=== PATIENT | male | born 1955 | race Caucasian/White ===

== ENCOUNTER 2017-06-17 19:00 | Observation (INO) | payer MEDICARE ==
--- NOTE | 2017-06-17 20:15 | RAD ---
INDICATION: Defibrillator fired. Arrhythmia. COMPARISON: July 15, 2013 TECHNIQUE: An AP portable view obtained at 1955 hours is submitted. FINDINGS: Bones/Soft Tissues: There are no acute bony findings. There is left-sided cardiac pacemaker/defibrillator. There are sternotomy Cardiomediastinal: The cardiomediastinal silhouette is normal. Lungs: There is mild linear change left lung base most consistent with atelectasis.. Pleura: There are no pleural effusions. Other: None IMPRESSION: POSTOPERATIVE CHANGES. MILD LEFT BASILAR ATELECTASIS, OTHERWISE NEGATIVE
[2017-06-17 20:28] LABS: Hematocrit 41 % (42-52); Hemoglobin 13.9 g/dl (14.0-18.0); Mean Corpuscular HGB Conc 34 g/dl (31-36); Mean Corpuscular Hemoglobin 30 pg (27-31); Mean Corpuscular Volume 89 fL (80-94); Mean Platelet Volume 8 um3 (7.4-10.4); Red Blood Count 4.63 10^6/ul (4.0-5.4); Red Cell Distribution Width 15 % (10.5-15); White Blood Count 8.9 10^3/ul (3.5-10.8)
[2017-06-17] MEDS ORDERED: NS 0.9% 1000 ML* 250 ML IV ONE (20:43)
[2017-06-17 20:44] LABS: Albumin 3.6 g/dL (3.2-5.2); BUN/Creatinine Ratio 19.8 (8-20); Calcium 9.2 mg/dL (8.6-10.3); EGFR African American 115.9 (>60); EGFR Non-African American 90.1 (>60); Globulin 2.8 g/dL (2-4); Magnesium 2.2 mg/dL (1.9-2.7); Potassium 3.4 mmol/L (3.5-5.0); Total Bilirubin 1.3 mg/dL (0.2-1.0); Total Protein 6.4 g/dL (6.4-8.9)
[2017-06-17 20:45] LABS: Troponin I 0.03 ng/mL (<0.04)
[2017-06-17] MEDS ORDERED: Potassium Chlor TAB* 20 MEQ TAB.ER PO ONE (20:53)
[2017-06-17 21:10] LABS: TSH (Thyroid Stimulating Horm) 1.76 mcIU/mL (0.34-5.60)
--- NOTE | 2017-06-17 21:36 | ED ---
Yogesh Arambula Benjamin, scribed for Hortencia Lyons MD on 06/17/17 at 1949 . Palpitations / Dysrhythmia - HPI Summary HPI Summary: 62yo male with hx of NV x3, with cardiac stents and defibrillator in placed. Pt s defibrillator went off today at 6pm. Pt has prior episodes of defibrillator malfunction. Pt reports having lightheadedness at the time of episode, which pt had similar feeling in his previous episodes. Pt is a former smoker. Also states that his BP is lower than his normal baseline. - History of Current Complaint Chief Complaint: EDDysrhythmPalp Hx Obtained From: Patient Onset/Duration: Sudden Onset - at 6pm today Character: Irregular - defibrillator malfunctioning Aggravating: Nothing Alleviating: Nothing Associated Signs & Symptoms: Lightheadedness Related History: Similar Episode/Dx as - defibrillator malfunctioning - Allergy/Home Medications Allergies/Adverse Reactions: Allergies Allergy/AdvReac Type Severity Reaction Status Date / Time No Known Allergies Allergy Verified 07/02/13 05:03 PMH/Surg Hx/FS Hx/Imm Hx Endocrine/Hematology History: Denies: Hx Anticoagulant Therapy Cardiovascular History: Reports: Hx Auto Implanted Cardiovert Defib, Hx Myocardial Infarction, Hx Pacemaker/ICD Infectious Disease History: Yes Infectious Disease History: Denies: Traveled Outside the [place] in Last 30 Days - Family History Known Family History: Positive: Cardiac Disease - Social History Occupation: Retired Lives: With Family Alcohol Use: None Substance Use Type: Reports: None Smoking Status (MU): Former Smoker Review of Systems Constitutional: Negative Eyes: Negative ENT: Negative Positive: Palpitations - defibrillator malfunctioning Respiratory: Negative Gastrointestinal: Negative Genitourinary: Negative Musculoskeletal: Negative Skin: Negative Neurological: Other - lightheadedness Psychological: Normal All Other Systems Reviewed And Are Negative: Yes Physical Exam Triage Information Reviewed: Yes Vital Signs On Initial Exam: Initial Vitals Temp Pulse Resp BP Pulse Ox 97.9 F 64 14 84/53 93 06/17/17 19:03 06/17/17 19:03 06/17/17 19:03 06/17/17 19:03 06/17/17 19:03 Vital Signs Reviewed: Yes Appearance: Positive: Well-Appearing, No Pain Distress, Well-Nourished Skin: Positive: Warm, Skin Color Reflects Adequate Perfusion, Dry Head/Face: Positive: Normal Head/Face Inspection Eyes: Positive: EOMI, JENNIFER, Conjunctiva Clear ENT: Positive: Normal ENT inspection, Hearing grossly normal Neck: Positive: Supple, Nontender Respiratory/Lung Sounds: Positive: Clear to Auscultation, Breath Sounds Present Cardiovascular: Positive: RRR, Pulses are Symmetrical in both Upper and Lower Extremities. Negative: Murmur Abdomen Description: Positive: Nontender, Soft Bowel Sounds: Positive: Present Musculoskeletal: Positive: Strength/ROM Intact Neurological: Positive: Sensory/Motor Intact, Alert, Oriented to Person Place, Time Psychiatric: Positive: Affect/Mood Appropriate - [place] Coma Scale Coma Scale Total: 15 Diagnostics - Vital Signs Vital Signs Temp Pulse Resp BP Pulse Ox 06/17/17 19:30 59 11 98/64 91 06/17/17 19:13 61 15 92 06/17/17 19:03 97.9 F 64 14 84/53 93 - Laboratory Lab Results: Lab Results 06/17/17 06/17/17 06/17/17 Range/Units 20:18 20:18 20:18 WBC 8.9 (3.5-10.8) 10^3/ul RBC 4.63 (4.0-5.4) 10^6/ul Hgb 13.9 L (14.0-18.0) g/dl Hct 41 L (42-52) % MCV 89 (80-94) fL MCH 30 (27-31) pg MCHC 34 (31-36) g/dl RDW 15 (10.5-15) % Plt Count 254 (150-450) 10^3/ul MPV 8 (7.4-10.4) um3 Neut % (Auto) 73.1 (38-83) % Lymph % (Auto) 15.9 L (25-47) % [place] % (Auto) 9.0 (1-9) % Eos % (Auto) 1.3 (0-6) % Baso % (Auto) 0.7 (0-2) % Absolute Neuts (auto) 6.5 (1.5-7.7) 10^3/ul Absolute Lymphs (auto) 1.4 (1.0-4.8) 10^3/ul Absolute Monos (auto) 0.8 (0-0.8) 10^3/ul Absolute Eos (auto) 0.1 (0-0.6) 10^3/ul Absolute Basos (auto) 0.1 (0-0.2) 10^3/ul Absolute Nucleated RBC 0 10^3/ul Nucleated RBC % 0 Sodium 139 (133-145) mmol/L Potassium 3.4 L (3.5-5.0) mmol/L Chloride 109 (101-111) mmol/L Carbon Dioxide 24 (22-32) mmol/L Anion Gap 6 (2-11) mmol/L BUN 17 (6-24) mg/dL Creatinine 0.86 (0.67-1.17) mg/dL Est GFR ( Amer) 115.9 (>60) Est GFR (Non-Af Amer) 90.1 (>60) BUN/Creatinine Ratio 19.8 (8-20) Glucose 127 H (70-100) mg/dL Lactic Acid 1.1 (0.5-2.0) mmol/L Calcium 9.2 (8.6-10.3) mg/dL Magnesium 2.2 (1.9-2.7) mg/dL Total Bilirubin 1.30 H (0.2-1.0) mg/dL AST 17 (13-39) U/L ALT 18 (7-52) U/L Alkaline Phosphatase 72 (34-104) U/L Troponin I 0.03 (<0.04) ng/mL Total Protein 6.4 (6.4-8.9) g/dL Albumin 3.6 (3.2-5.2) g/dL Globulin 2.8 (2-4) g/dL Albumin/Globulin Ratio 1.3 (1-3) TSH 1.76 (0.34-5.60) mcIU/mL Result Diagrams: 06/17/17 20:18 06/17/17 20:18 Lab Statement: Any lab studies that have been ordered have been reviewed, and results considered in the medical decision making process. - EKG 2010. Cardiac Rate: NL - 60bpm EKG Rhythm: Sinus Rhythm EKG Interpretation: lateral and inferior Qs. EKG Comparison: No Significant Change - from EKG on July,. Course/Dx - Course Course Of Treatment: Reviewed pts medication and allergy lists. Blood pressure noted. Discussed with Dr. Maria (Hospitalist) at 20:22. Discussed with Dr. Hoyt's fellow (congressional district aide) at 21:04. pt given one dose of 250 cc of ns for slightly low bp pt which will be repeated if needed now bp in the 90's and pt is well appearing pt to be admitted by Dr. Maria - Diagnoses Provider Diagnoses: Ventricular tachycardia Discharge - Discharge Plan Condition: Stable Disposition: ADMITTED TO [facility] The documentation as recorded by the Yogesh billings Benjamin accurately reflects the service I personally performed and the decisions made by me, Hortencia Lyons MD.
--- NOTE | 2017-06-18 00:11 | HP ---
H&P (Free Text) History and Physical: PCP: Jhon Dewey MD Cardiology: Dr Lu at [facility] Date/Time: 06/18/2017 0010 CC: AICD fired HPI: Mr Malcolm is a 62YO male HX VT s/p AICD who has been doing without and AICD discharge for ~3 years. Tonight around 1800 he was sitting at home talking on the phone when he experienced the cranial pressure he typically gets during VT and within a few seconds, his AICD fired once prompting this evaluation. He denies chest pain, SOB, palpitations, and sweating. Ironically, he had seen his rate inserter yesterday and informed him of self-D/C'ing his 25mg losartan ~9 months previously. His rate inserter encouraged him to restart as it improved cardiac remodeling and performance over time. He took the first restart dose this AM and is convinced it is what caused his VT. While it may appear related, it was explained that in his situation I can not explain how it could. He was not reassured and refused to reconsider taking it further. As such, I offered to switch him to a low dose lisinopril which would be an adequate substitution and he agreed. He is currently symptom free. PMedHx VT s/p AICD HLD cardiac laceration complicating his 2nd ablation Ambulatory Orders Nursing to reconcile. Atorvastatin* [Lipitor*] 40 mg PO DAILY 07/21/12 Clopidogrel TAB* [Plavix TAB*] 75 mg PO DAILY 07/21/12 Metoprolol Tartrate TAB* [Lopressor TAB*] 50 mg PO BID 07/21/12 Nitroglycerin TAB 0.4 MG* [Nitrostat*] 0.4 mg SL Q5M PRN 07/21/12 Aspirin EC Low Dose* [Ecotrin EC Low Dose 81 MG*] 81 mg PO DAILY 07/02/13 Dofetilide CAP* [Tikosyn CAP*] 250 mcg PO BID 07/06/13 Furosemide TAB* [Lasix TAB*] 20 mg PO DAILY 07/06/13 Spironolactone TAB* [Aldactone TAB*] 25 mg PO DAILY 07/06/13 Allergies No Known Allergies Allergy (Verified 07/02/13 05:03) PSurgHx cardiac ablation x2 AICD placement varicose vein stripping tonsillectomy SocHx: former smoker quit 4 years ago, rare alcohol, no recreational drugs; , lives with his ; full code status FamHx: Mother passed in her 80s 2nd ischemic bowel with DM2. Father passed in his 90's 2nd Alzheimer's. Sister passed of breast CA. ROS: He has lost ~100# over the past year or so intentionally without surgery; otherwise reviewed and all were negative vitals: Vital Signs Temp 36.4 C 06/18/17 00:59 Pulse 89 06/18/17 00:59 Resp 16 06/18/17 00:59 BP 102/67 06/18/17 00:59 Pulse Ox 97 06/18/17 00:59 Intake & Output 06/17/17 06/17/17 06/18/17 11:59 23:59 11:59 Intake Total 250 Balance 250 Weight 101.151 kg Intake: IV Fluids 250 Constitutional: NAD, normally developed, obese white male HEENM: atraumatic; sclera/conjunctiva: non-icteric/clear; hearing: clinically intact; oropharynx: clear, mucosa moist Neck: soft tissue: non-tender; thyroid: normal Pulmonary: clear to auscultation bilaterally, good aeration, no accessory muscle use CV: RR/RR, normal S1S2, no carotid bruit, no jugular venous distention, 2+ B DP/ PT, no edema Abdominal: soft, non-distended, non-tender, no rebound/guarding/rigidity, normoactive bowel sounds, no hepatosplenomegaly or masses, no costovertebral angle tenderness Musculoskeletal: general: grossly intact, no palpable tenderness Integumental: normal appearance and texture of exposed skin Psychiatric orientation: AA&O to PPS affect: comfortable mood: pleasant eye contact: good content: reliable responses: timely insight: good Testing: Lab Results 06/17/17 06/17/17 06/17/17 Range/Units 20:18 20:18 20:18 WBC 8.9 (3.5-10.8) 10^3/ul RBC 4.63 (4.0-5.4) 10^6/ul Hgb 13.9 L (14.0-18.0) g/dl Hct 41 L (42-52) % MCV 89 (80-94) fL MCH 30 (27-31) pg MCHC 34 (31-36) g/dl RDW 15 (10.5-15) % Plt Count 254 (150-450) 10^3/ul MPV 8 (7.4-10.4) um3 Neut % (Auto) 73.1 (38-83) % Lymph % (Auto) 15.9 L (25-47) % [place] % (Auto) 9.0 (1-9) % Eos % (Auto) 1.3 (0-6) % Baso % (Auto) 0.7 (0-2) % Absolute Neuts (auto) 6.5 (1.5-7.7) 10^3/ul Absolute Lymphs (auto) 1.4 (1.0-4.8) 10^3/ul Absolute Monos (auto) 0.8 (0-0.8) 10^3/ul Absolute Eos (auto) 0.1 (0-0.6) 10^3/ul Absolute Basos (auto) 0.1 (0-0.2) 10^3/ul Absolute Nucleated RBC 0 10^3/ul Nucleated RBC % 0 Sodium 139 (133-145) mmol/L Potassium 3.4 L (3.5-5.0) mmol/L Chloride 109 (101-111) mmol/L Carbon Dioxide 24 (22-32) mmol/L Anion Gap 6 (2-11) mmol/L BUN 17 (6-24) mg/dL Creatinine 0.86 (0.67-1.17) mg/dL Est GFR ( Amer) 115.9 (>60) Est GFR (Non-Af Amer) 90.1 (>60) BUN/Creatinine Ratio 19.8 (8-20) Glucose 127 H (70-100) mg/dL Lactic Acid 1.1 (0.5-2.0) mmol/L Calcium 9.2 (8.6-10.3) mg/dL Magnesium 2.2 (1.9-2.7) mg/dL Total Bilirubin 1.30 H (0.2-1.0) mg/dL AST 17 (13-39) U/L ALT 18 (7-52) U/L Alkaline Phosphatase 72 (34-104) U/L Troponin I 0.03 (<0.04) ng/mL Total Protein 6.4 (6.4-8.9) g/dL Albumin 3.6 (3.2-5.2) g/dL Globulin 2.8 (2-4) g/dL Albumin/Globulin Ratio 1.3 (1-3) TSH 1.76 (0.34-5.60) mcIU/mL 06/18/17 Range/Units 01:18 WBC (3.5-10.8) 10^3/ul RBC (4.0-5.4) 10^6/ul Hgb (14.0-18.0) g/dl Hct (42-52) % MCV (80-94) fL MCH (27-31) pg MCHC (31-36) g/dl RDW (10.5-15) % Plt Count (150-450) 10^3/ul MPV (7.4-10.4) um3 Neut % (Auto) (38-83) % Lymph % (Auto) (25-47) % [place] % (Auto) (1-9) % Eos % (Auto) (0-6) % Baso % (Auto) (0-2) % Absolute Neuts (auto) (1.5-7.7) 10^3/ul Absolute Lymphs (auto) (1.0-4.8) 10^3/ul Absolute Monos (auto) (0-0.8) 10^3/ul Absolute Eos (auto) (0-0.6) 10^3/ul Absolute Basos (auto) (0-0.2) 10^3/ul Absolute Nucleated RBC 10^3/ul Nucleated RBC % Sodium (133-145) mmol/L Potassium (3.5-5.0) mmol/L Chloride (101-111) mmol/L Carbon Dioxide (22-32) mmol/L Anion Gap (2-11) mmol/L BUN (6-24) mg/dL Creatinine (0.67-1.17) mg/dL Est GFR ( Amer) (>60) Est GFR (Non-Af Amer) (>60) BUN/Creatinine Ratio (8-20) Glucose (70-100) mg/dL Lactic Acid (0.5-2.0) mmol/L Calcium (8.6-10.3) mg/dL Magnesium (1.9-2.7) mg/dL Total Bilirubin (0.2-1.0) mg/dL AST (13-39) U/L ALT (7-52) U/L Alkaline Phosphatase (34-104) U/L Troponin I 0.03 (<0.04) ng/mL Total Protein (6.4-8.9) g/dL Albumin (3.2-5.2) g/dL Globulin (2-4) g/dL Albumin/Globulin Ratio (1-3) TSH (0.34-5.60) mcIU/mL ECG, personally reviewed: NSR rate 60, no ischemia CXR, personally reviewed: IMPRESSION: POSTOPERATIVE CHANGES. MILD LEFT BASILAR ATELECTASIS, OTHERWISE NEGATIVE Impression: 62M presenting with an episode of VT terminated by AICD DIAGNOSIS & PLAN Primary VT terminated by AICD : AICD interrogation on chart : raise K+ to >4.0 : Mg++ is 2.2 : telemetry : trend troponin : supplemental oxygen : supportive care : review & continue meds once reconciled Secondary HLD : review meds once reconciled Admission Rational: CDU observation for VT terminated by AICD DVTp: heparin SQ Code Status: full HCP:
[2017-06-18] MEDS ORDERED: Albuterol 2.5 MG/3 ML NEB.SOL* (0.083%) INH PRN (00:16)
[2017-06-18] MEDS ORDERED: Acetaminophen TAB* 325 MG PO PRN (00:16)
[2017-06-18] MEDS ORDERED: Ondansetron INJ* 2 MG/ML VIAL IV PRN (00:16)
[2017-06-18] MEDS ORDERED: CMCS: Melatonin (NF) 3 MG TAB PO PRN (00:16)
[2017-06-18] MEDS ORDERED: NS 0.9% 1000 ML* 1,000 ML IV SCH (00:30)
[2017-06-18] MEDS ORDERED: NS 0.9% 1000 ML* 500 ML IV ONE (00:48)
[2017-06-18] MEDS ORDERED: Omeprazole CAP* 20 MG PO SCH (06:00)
[2017-06-18 06:03] LABS: Hematocrit 39 % (42-52); Hemoglobin 13.1 g/dl (14.0-18.0)
[2017-06-18 06:05] LABS: BUN/Creatinine Ratio 18.5 (8-20); Calcium 8.9 mg/dL (8.6-10.3); EGFR African American 124.2 (>60); EGFR Non-African American 96.6 (>60); Potassium 3.8 mmol/L (3.5-5.0)
[2017-06-18 06:07] LABS: Troponin I 0.03 ng/mL (<0.04)
[2017-06-18] MEDS ORDERED: Lisinopril TAB* 5 MG PO SCH (09:00)
[2017-06-18 10:44] VITALS: BP 86/67
--- NOTE | 2017-06-19 04:16 | DS ---
CC: Jeff Diaz * DISCHARGE SUMMARY: DATE OF ADMISSION: 06/18/17 DATE OF DISCHARGE: 06/18/17 HISTORY: This 62-year-old man presented after his ICD fired. About 6 p.m., he was talking on the phone. He had some type of pressure sensation. He was able to detect the overpacing attempt of the pacemaker, then his ICD fired. He has had 7 or 8 previous firings over the years he has had ICDs. This is actually his second ICD. He promptly electronically transmitted the ICD interrogation over the phone to his psych social worker and this arrived in the emergency room with signs he had had ventricular tachycardia. The patient had not taken losartan for 9 months and restarted it at the urging of his psych social worker the morning that he had the V-tach and feels that it is a causal relationship. The patient was admitted to a telemetry unit. He had no further significant arrhythmias on the firing of the ICD. His potassium is 3.4. He got 40 mEq p.o. in the emergency room and his potassium was 3.8. The next morning, creatinine is 0.86 and 0.81. Two troponins were drawn all of which were within normal limits. I am adding potassium 10 mEq daily to the patient's medications and having him get a potassium level on 06/22/17. FINAL DIAGNOSES: 1. Ischemic cardiomyopathy. 2. Ventricular tachycardia. 3. Hyperlipidemia. DISCHARGE MEDICATIONS: 1. Potassium chloride 10 mEq daily. 2. Clopidogrel 75 mg daily. 3. Atorvastatin 40 mg daily. 4. Nitroglycerin 0.4 mg sublingual q.5 minutes p.r.n. 5. Metoprolol tartrate 50 mg b.i.d. 6. Aspirin 81 mg daily. 7. Spironolactone 25 mg daily. 8. Furosemide 20 mg daily. 9. Dofetilide 250 mcg b.i.d. [id number]/[facility] #: [id number] [facility] SYSTEMEfrain
[2017-06-19] MEDS ORDERED: Heparin VIAL(*) 5000 UNITS/ML VIAL (FIVE THOUSAND) SUBCUT SCH (06:00)
== END 2017-06-18 12:34 | disposition home or self-care (01) ==
LOC: ED 19:00 → MEDTELE 06-18 00:11
PROVIDERS: ADMIT Hospitalist; ATTEND Internal Medicine
DX: I25.5 Ischemic cardiomyopathy (principal); I47.2 Ventricular tachycardia; E78.5 Hyperlipidemia, unspecified; I25.2 Old myocardial infarction; J98.11 Atelectasis; R94.31 Abnormal electrocardiogram [ECG] [EKG]; I44.4 Left anterior fascicular block; Z79.82 Long term (current) use of aspirin; Z79.899 Other long term (current) drug therapy; Z87.891 Personal history of nicotine dependence
CPT/HCPCS: 36415; 71010; 80048; 80053; 83605; 83735; 84443; 84484; 85014; 85018; 85025; 93005; 94760; 96360; 96361; 99284; A9270-GY; G0378

== ENCOUNTER 2018-06-16 17:35 | Emergency (ER) | payer MEDICARE ==
[2018-06-16 18:41] VITALS: BP 93/60
--- NOTE | 2018-06-16 20:00 | UC ---
Hand/Wrist HPI - HPI Summary HPI Summary: left wrist pain developed after a motorocycle cllass several days ago, no prior hx. of gout, no fever or chills, no discharge from the skin - History Of Current Complaint Chief Complaint: UCUpperExtremity Stated Complaint: HAND/WRIST PAIN/SWELLING Time Seen by Provider: 06/16/18 19:15 Hx Obtained From: Patient ?: No Onset/Duration: Sudden Onset, Lasting Days Severity Initially: Moderate Severity Currently: Moderate Pain Intensity: 3 Character Of Pain: Sharp, Throbbing Aggravating Factor(s): Movement Alleviating Factor(s): Rest, Ice Associated Signs And Symptoms: Positive: Swelling, Redness - Allergies/Home Medications Allergies/Adverse Reactions: Allergies Allergy/AdvReac Type Severity Reaction Status Date / Time No Known Allergies Allergy Verified 06/16/18 18:26 Home Medications: Home Medications Carvedilol TAB* [Coreg TAB*] 1 tab BID 06/16/18 [History Confirmed 06/16/18] Magnesium 1 tab DAILY 06/16/18 [History Confirmed 06/16/18] Potassium Chlor TAB* [Klor Con ER TAB 10 MEQ*] 10 meq DAILY 06/16/18 [History Confirmed 06/16/18] PMH/Surg Hx/FS Hx/Imm Hx Previously Healthy: No - hx of vtach requiring two ablations, injury to the heart during second abla Cardiovascular History: Cardiac Disease, Pacemaker/ICD - vtach with ablation, injury to heart with second ablation and chf Other History Of: Negative For: Anticoagulant Therapy - Surgical History Surgical History: Yes Surgery Procedure, Year, and Place: Cardiac ablation x2 - Family History Known Family History: Positive: Cardiac Disease - Social History Alcohol Use: None Substance Use Type: None Smoking Status (MU): Former Smoker - Immunization History Most Recent Tetanus Shot: UTD Review of Systems Constitutional: Negative Skin: Other - redness over the left wrist Eyes: Negative ENT: Negative Respiratory: Negative Cardiovascular: Negative Gastrointestinal: Negative Genitourinary: Negative Motor: Decreased ROM - left wrist with decreased ROM Musculoskeletal: Other: - pain ,swelling left wrist Is Patient Immunocompromised?: No All Other Systems Reviewed And Are Negative: Yes Physical Exam Triage Information Reviewed: Yes Appearance: Well-Appearing, Pain Distress, Obese Vital Signs: Initial Vital Signs Temp 36.7 C 06/16/18 18:29 Pulse 62 06/16/18 18:29 Resp 16 06/16/18 18:29 BP 93/60 06/16/18 18:29 Pulse Ox 99 06/16/18 18:29 Vital Signs Reviewed: Yes Eye Exam: Normal ENT Exam: Normal ENT: Positive: Normal ENT inspection Neck exam: Normal Neck: Positive: Supple Respiratory Exam: Normal Respiratory: Positive: Chest non-tender, Lungs clear Abdominal Exam: Normal Abdomen Description: Positive: Nontender Bowel Sounds: Positive: Present Musculoskeletal: Positive: Other: - pain on flexion , extension of the wrist, with swelling pain with ulnar and radial deviation of the wrist Hand/Wrist Course/Dx - Differential Dx/Diagnosis Provider Diagnoses: acute gout left wrist vs pseudogout Discharge - Sign-Out/Discharge Documenting (check all that apply): Patient Departure All imaging exams completed and their final reports reviewed: Yes - Discharge Plan Condition: Good Disposition: HOME Prescriptions: predniSONE [Prednisone 20 MG TAB] 20 mg PO DAILY 7 Days #14 tablet Patient Education Materials: Gout (ED) Referrals: Maco VAZQUEZ,Aj Murillo [Primary Care Provider] - - Billing Disposition and Condition Condition: GOOD Disposition: Home
--- NOTE | 2018-06-17 07:43 | RAD ---
HISTORY: pain swelling of the left wrist, left wrist COMPARISONS: None VIEWS: 3 , Frontal, lateral, and oblique views FINDINGS: BONE DENSITY: Normal. BONES: There is no displaced fracture. JOINTS: There is osteoarthritis of the first CMC joint and first interphalangeal joint. ALIGNMENT: There is no dislocation. SOFT TISSUES: Unremarkable. OTHER FINDINGS: None. IMPRESSION: OSTEOARTHRITIS. NO ACUTE OSSEOUS INJURY. IF SYMPTOMS PERSIST, RECOMMEND REPEAT IMAGING. R0
[2018-06-17 11:21] LABS: Hematocrit 39 % (42-52); Hemoglobin 13.2 g/dl (14.0-18.0); Mean Corpuscular HGB Conc 34 g/dl (31-36); Mean Corpuscular Hemoglobin 30 pg (27-31); Mean Corpuscular Volume 89 fL (80-94); Mean Platelet Volume 8.4 um3 (7.4-10.4); Platelet Count 240 10^3/ul (150-450); Red Cell Distribution Width 14 % (10.5-15); White Blood Count 7.7 10^3/ul (3.5-10.8)
[2018-06-17 11:32] LABS: EGFR Non-African American 86.3 (>60); Uric Acid 4.9 mg/dL (4.4-7.6)
[2018-06-17 14:28] LABS: ABS Basophils 0.1 10^3/ul (0-0.2); ABS Eosinophils 0.3 10^3/ul (0-0.6); ABS Lymphocytes 1.7 10^3/ul (1.0-4.8); ABS Monocytes 0.9 10^3/ul (0-0.8); ABS Neutrophils 4.8 10^3/ul (1.5-7.7); ABS Nucleated RBC 0 10^3/ul; Eosinophil % 3.4 % (0-6); Lymphocyte % 21.6 % (25-47); Nucleated Red Blood Cells % 0.2
== END 2018-06-16 20:38 | disposition home or self-care (01) ==
LOC: UCCORT 17:35
DX: M10.9 Gout, unspecified (principal); Z87.891 Personal history of nicotine dependence
CPT/HCPCS: 36415; 80053; 84550; 85025; 85652; 99212; G0463

== ENCOUNTER 2021-01-25 21:26 | Inpatient (IN) ==
[2021-01-25] MEDS ORDERED: Amiodarone IV 150 mg/3 ml VIAL ONE (21:57)
[2021-01-25] MEDS ORDERED: Amiodarone 150 mg IVPREMIX 150 MG/100 ML BAG IV ONE (22:05)
[2021-01-25] MEDS ORDERED: NS 0.9% 1000 ml BAG 1,000 ML IV ONE (22:05)
[2021-01-25 22:17] LABS: ABS Basophils 0.1 10^3/ul (0-0.2); ABS Eosinophils 0.4 10^3/ul (0-0.6); ABS Lymphocytes 1.5 10^3/ul (1.0-4.8); ABS Monocytes 0.8 10^3/ul (0-0.8); ABS Neutrophils 5.6 10^3/ul (1.5-7.7); Eosinophil % 4.9 %; Hematocrit 39 % (42-52); Hemoglobin 13.2 g/dL (14.0-18.0); Lymphocyte % 17.9 %; Mean Corpuscular HGB Conc 34 g/dL (31-36); Mean Corpuscular Hemoglobin 31 pg (27-31); Mean Corpuscular Volume 89 fL (80-94); Mean Platelet Volume 7.4 fL (7.4-10.4); Nucleated Red Blood Cells % 0.2; Platelet Count 271 10^3/uL (150-450); Red Blood Count 4.35 10^6 /uL (4.18-5.48); Red Cell Distribution Width 14 % (10-15); White Blood Count 8.3 10^3/uL (3.5-10.8)
[2021-01-25 22:25] LABS: INR 1.14 (0.82-1.09)
[2021-01-25 22:34] LABS: ALT 14 U/L (7-52); Albumin 3.2 g/dL (3.2-5.2); Alkaline Phosphatase 80 U/L (34-104); Blood Urea Nitrogen 22 mg/dL (6-24); CO2 Carbon Dioxide 20 mmol/L (22-32); Calcium 8.1 mg/dL (8.6-10.3); Chloride 107 mmol/L (101-111); EGFR African American 86.5 (>60); EGFR Non-African American 71.5 (>60); Globulin 3.1 g/dL (2-4); Glucose 96 mg/dL (70-100); Sodium 137 mmol/L (135-145); Total Protein 6.3 g/dL (6.4-8.9)
[2021-01-25 22:45] LABS: Anion Gap 10 mmol/L (2-11); Troponin I 0.03 ng/mL (<0.03)
[2021-01-25 22:48] LABS: TSH Ultra Thyroid Stim Horm 2.98 mcIU/mL (0.34-5.60)
[2021-01-25] MEDS: Amiodarone 360 MG IVPREMIX 360 MG/200 ML BAG IV ONE (23:09)
[2021-01-25 23:49] LABS: Magnesium 1.9 mg/dL (1.9-2.7)
[2021-01-26 00:13] LABS: Potassium Redraw 4.1 mmol/L (3.5-5.0)
[2021-01-26] MEDS ORDERED: Furosemide 40 mg/4 ml IV VIAL IV ONE (00:38)
[2021-01-26 02:46] LABS: Troponin I 0.03 ng/mL (<0.03)
[2021-01-26] MEDS ORDERED: Albuterol HFA INHALER 8 gm MDI INH PRN (03:03)
[2021-01-26] MEDS: Amiodarone 360 MG IVPREMIX 360 MG/200 ML BAG IV ONE (04:13)
[2021-01-26] MEDS: Amiodarone 360 MG IVPREMIX 360 MG/200 ML BAG IV SCH ×2 (04:14→16:26)
[2021-01-26] MEDS: Heparin 5000 UNITS/ML 1 mL VIAL SUBCUT SCH ×3 (05:41→21:35)
[2021-01-26 06:35] LABS: Troponin I 0.04 ng/mL (<0.03)
[2021-01-26] MEDS: CMCS: Ranolazine 500 mg TAB (NF) PO SCH ×2 (08:05→19:40)
[2021-01-26] MEDS: Aspirin EC 81 mg TAB.EC (enteric coated) PO SCH (08:05)
[2021-01-26] MEDS: Amiodarone 400 mg TAB PO SCH (19:40)
[2021-01-27 04:33] LABS: ABS Basophils 0.1 10^3/ul (0-0.2); ABS Eosinophils 0.5 10^3/ul (0-0.6); ABS Monocytes 0.7 10^3/ul (0-0.8); ABS Neutrophils 6.1 10^3/ul (1.5-7.7); Eosinophil % 5.6 %; Hematocrit 38 % (42-52); Hemoglobin 12.9 g/dL (14.0-18.0); Lymphocyte % 12.4 %; Mean Corpuscular HGB Conc 34 g/dL (31-36); Mean Corpuscular Hemoglobin 31 pg (27-31); Mean Corpuscular Volume 90 fL (80-94); Mean Platelet Volume 7.1 fL (7.4-10.4); Platelet Count 254 10^3/uL (150-450); Red Blood Count 4.23 10^6 /uL (4.18-5.48); Red Cell Distribution Width 15 % (10-15); White Blood Count 8.4 10^3/uL (3.5-10.8)
[2021-01-27 04:51] LABS: Anion Gap 5 mmol/L (2-11); Blood Urea Nitrogen 25 mg/dL (6-24); CO2 Carbon Dioxide 24 mmol/L (22-32); Calcium 8.5 mg/dL (8.6-10.3); Chloride 109 mmol/L (101-111); EGFR African American 88.4 (>60); EGFR Non-African American 73.1 (>60); Glucose 96 mg/dL (70-100); Phosphorus 3.8 mg/dL (2.5-5.0); Sodium 138 mmol/L (135-145)
[2021-01-27] MEDS: Heparin 5000 UNITS/ML 1 mL VIAL SUBCUT SCH (05:57)
[2021-01-27] MEDS: Aspirin EC 81 mg TAB.EC (enteric coated) PO SCH (08:10)
[2021-01-27] MEDS: Amiodarone 400 mg TAB PO SCH (08:10)
[2021-01-27] MEDS: CMCS: Ranolazine 500 mg TAB (NF) PO SCH (08:11)
[2021-01-27] MEDS ORDERED: Perflutren Lipid Microsphere 3 ML VIAL ONE (08:19)
[2021-01-27 09:07] LABS: Troponin I 0.03 ng/mL (<0.03)
[2021-01-27 13:48] VITALS: BP 88/60
== END 2021-01-27 13:45 | disposition home or self-care (01) | DRG 308 ==
LOC: ED 21:26 → ICU 01-26 00:34
PROVIDERS: ADMIT Internal Medicine Interventional Cardiology; ATTEND Internal Medicine Critical Care Medicine

== ENCOUNTER 2021-03-14 20:19 | Inpatient (IN) ==
[2021-03-14] MEDS ORDERED: Amiodarone 150 mg IVPREMIX 150 MG/100 ML BAG IV ONE (20:47)
[2021-03-14] MEDS ORDERED: Amiodarone 360 MG IVPREMIX 360 MG/200 ML BAG IV ONE (20:47)
[2021-03-14 21:17] LABS: ABS Basophils 0.1 10^3/ul (0-0.2); ABS Eosinophils 0.4 10^3/ul (0-0.6); ABS Lymphocytes 1.5 10^3/ul (1.0-4.8); ABS Monocytes 0.9 10^3/ul (0-0.8); ABS Neutrophils 6.5 10^3/ul (1.5-7.7); Eosinophil % 4.7 %; Hematocrit 39 % (42-52); Lymphocyte % 16.2 %; Mean Corpuscular HGB Conc 34 g/dL (31-36); Mean Corpuscular Hemoglobin 30 pg (27-31); Mean Corpuscular Volume 90 fL (80-94); Mean Platelet Volume 7.2 fL (7.4-10.4); Platelet Count 297 10^3/uL (150-450); Red Blood Count 4.32 10^6 /uL (4.18-5.48); Red Cell Distribution Width 15 % (10-15); White Blood Count 9.5 10^3/uL (3.5-10.8)
[2021-03-14 21:35] LABS: Albumin 3.4 g/dL (3.2-5.2); Albumin/Globulin Ratio 1.2 (1-3); Calcium 8.3 mg/dL (8.6-10.3); EGFR African American 70.6 (>60); EGFR Non-African American 58.3 (>60); Globulin 2.9 g/dL (2-4); Magnesium 1.9 mg/dL (1.9-2.7); Total Bilirubin 0.5 mg/dL (0.2-1.0); Total Protein 6.3 g/dL (6.4-8.9)
[2021-03-14 21:36] LABS: Troponin I 0.02 ng/mL (<0.03)
[2021-03-14 21:51] LABS: TSH Ultra Thyroid Stim Horm 3.08 mcIU/mL (0.34-5.60)
[2021-03-14 22:14] LABS: Potassium 3.7 mmol/L (3.5-5.0)
[2021-03-14] MEDS ORDERED: Metoprolol Tartrate 5 mg VIAL 5 ml VIAL (1 mg/ml) IV ONE (22:18)
[2021-03-14] MEDS ORDERED: Ondansetron 4 mg VIAL 2 MG/ML 2 ml VIAL IV PRN (22:40)
[2021-03-14] MEDS ORDERED: Potassium Chlor 20 meq TAB.ER PO ONE (22:43)
[2021-03-14] MEDS ORDERED: KCL 20 MEQ/100 ML IVPREMIX 20 MEQ/100 ML BAG IV ONE (22:44)
[2021-03-14] MEDS ORDERED: Enoxaparin 40 MG/0.4 ML SYR SUBCUT SCH (23:00)
[2021-03-14] MEDS ORDERED: Etomidate 20 mg/10 ml 2 MG/ML 10 ml VIAL IV ONE (23:41)
[2021-03-15] MEDS ORDERED: NS 0.9% 500 ml BAG 500 ML IV ONE (01:05)
[2021-03-15] MEDS ORDERED: Albuterol HFA INHALER 8 gm MDI INH PRN (01:48)
[2021-03-15 06:38] LABS: ABS Basophils 0.1 10^3/ul (0-0.2); ABS Eosinophils 0.4 10^3/ul (0-0.6); ABS Lymphocytes 1.5 10^3/ul (1.0-4.8); ABS Monocytes 0.7 10^3/ul (0-0.8); ABS Neutrophils 4.8 10^3/ul (1.5-7.7); Eosinophil % 5.5 %; Hematocrit 36 % (42-52); Hemoglobin 12.2 g/dL (14.0-18.0); Lymphocyte % 19.9 %; Mean Corpuscular HGB Conc 34 g/dL (31-36); Mean Corpuscular Hemoglobin 30 pg (27-31); Mean Corpuscular Volume 90 fL (80-94); Mean Platelet Volume 7.2 fL (7.4-10.4); Platelet Count 265 10^3/uL (150-450); Red Blood Count 4.01 10^6 /uL (4.18-5.48); Red Cell Distribution Width 15 % (10-15); White Blood Count 7.6 10^3/uL (3.5-10.8)
[2021-03-15 07:05] LABS: Blood Urea Nitrogen 23 mg/dL (6-24); CO2 Carbon Dioxide 21 mmol/L (22-32); Calcium 8.2 mg/dL (8.6-10.3); EGFR African American 78.6 (>60); EGFR Non-African American 64.9 (>60); Glucose 90 mg/dL (70-100); Potassium 4.3 mmol/L (3.5-5.0); Sodium 140 mmol/L (135-145)
[2021-03-15 07:06] LABS: Anion Gap 6 mmol/L (2-11); Chloride 113 mmol/L (101-111)
[2021-03-15 09:08] LABS: Troponin I 0.08 ng/mL (<0.03)
[2021-03-15] MEDS ORDERED: Amiodarone IV 150 mg/3 ml VIAL IV PUSH ONE (09:15)
[2021-03-15] MEDS ORDERED: DEXTROSE IV ONE (09:15)
[2021-03-15] MEDS ORDERED: AMIODARONE IV ONE (09:15)
[2021-03-15] MEDS ORDERED: Amiodarone 360 MG IVPREMIX 360 MG/200 ML BAG IV ONE (09:30)
[2021-03-15] MEDS: Enoxaparin 40 MG/0.4 ML SYR SUBCUT SCH (09:40)
[2021-03-15] MEDS: Aspirin EC 81 mg TAB.EC (enteric coated) PO SCH (09:41)
[2021-03-15] MEDS: CMCS:Ranolazine 500 mg TAB (NF) PO SCH ×2 (09:58→22:10)
[2021-03-15] MEDS ORDERED: Perflutren Lipid Microsphere 3 ML VIAL ONE (12:20)
[2021-03-16] MEDS: CMCS:Ranolazine 500 mg TAB (NF) PO SCH (09:39)
[2021-03-16] MEDS: Enoxaparin 40 MG/0.4 ML SYR SUBCUT SCH (09:39)
[2021-03-16] MEDS: Aspirin EC 81 mg TAB.EC (enteric coated) PO SCH (09:39)
[2021-03-16 22:06] VITALS: BP 99/70
== END 2021-03-16 22:27 | disposition short-term general hospital (02) | DRG 309 ==
LOC: ED 20:19 → ICU 03-15 01:40
PROVIDERS: ADMIT Internal Medicine; ATTEND Internal Medicine Critical Care Medicine

== ENCOUNTER 2022-04-29 14:22 | Inpatient (IN) ==
[~2022-04-29 14:22] MED LIST: CMCS:Ranolazine 500 mg TAB ER (NF) PO SCH
[2022-04-29] MEDS ORDERED: Ondansetron 4 mg VIAL 2 MG/ML 2 ml VIAL IV ONE (15:04)
[2022-04-29 15:11] LABS: ABS Basophils 0.1 10^3/ul (0-0.2); ABS Eosinophils 0.1 10^3/ul (0-0.6); ABS Lymphocytes 1.1 10^3/ul (1.0-4.8); ABS Monocytes 0.8 10^3/ul (0-0.8); ABS Neutrophils 6.7 10^3/ul (1.5-7.7); Eosinophil % 0.7 %; Hematocrit 43 % (42-52); Hemoglobin 14.1 g/dL (14.0-18.0); Lymphocyte % 13.1 %; Mean Corpuscular HGB Conc 33 g/dL (31-36); Mean Corpuscular Hemoglobin 30 pg (27-31); Mean Corpuscular Volume 90 fL (80-94); Mean Platelet Volume 7.7 fL (7.4-10.4); Nucleated Red Blood Cells % 0.1; Platelet Count 283 10^3/uL (150-450); Red Blood Count 4.75 10^6 /uL (4.18-5.48); Red Cell Distribution Width 15 % (10-15); White Blood Count 8.8 10^3/uL (3.5-10.8)
[2022-04-29 15:27] LABS: INR 1.42 (0.89-1.11)
[2022-04-29 16:11] LABS: Albumin 3.4 g/dL (3.2-5.2); Albumin/Globulin Ratio 1.3 (1-3); Calcium 8.6 mg/dL (8.6-10.3); Globulin 2.7 g/dL (2-4); Potassium 4.2 mmol/L (3.5-5.0); Total Bilirubin 1.2 mg/dL (0.2-1.0); Total Protein 6.1 g/dL (6.4-8.9); eGFR CKD-EPI 59.7 (>60)
[2022-04-29 16:54] LABS: High Sensitivity Troponin 1 Hr 32 pg/mL (<20)
[2022-04-29] MEDS ORDERED: Lactated Ringers 1000 ml BAG 1,000 ML IV ONE ×2 (17:28→21:18)
[2022-04-29] MEDS ORDERED: Albuterol HFA INHALER 8 gm MDI INH PRN (19:31)
[2022-04-30] MEDS: CMCS:Ranolazine 500 mg TAB ER (NF) PO SCH ×2 (03:16→21:01)
[2022-04-30 05:24] LABS: ABS Basophils 0.1 10^3/ul (0-0.2); ABS Eosinophils 0.2 10^3/ul (0-0.6); ABS Lymphocytes 0.8 10^3/ul (1.0-4.8); ABS Monocytes 0.8 10^3/ul (0-0.8); ABS Neutrophils 6.4 10^3/ul (1.5-7.7); Eosinophil % 2.6 %; Hematocrit 38 % (42-52); Hemoglobin 12.6 g/dL (14.0-18.0); Lymphocyte % 9.8 %; Mean Corpuscular HGB Conc 33 g/dL (31-36); Mean Corpuscular Hemoglobin 30 pg (27-31); Mean Corpuscular Volume 90 fL (80-94); Mean Platelet Volume 7.2 fL (7.4-10.4); Platelet Count 250 10^3/uL (150-450); Red Blood Count 4.21 10^6 /uL (4.18-5.48); Red Cell Distribution Width 15 % (10-15); White Blood Count 8.4 10^3/uL (3.5-10.8)
[2022-04-30 06:23] LABS: Calcium 8.5 mg/dL (8.6-10.3); Potassium 4.1 mmol/L (3.5-5.0); eGFR CKD-EPI 49.1 (>60)
[2022-04-30] MEDS ORDERED: Aminophylline 25 MG/ML VIAL ONE (07:25)
[2022-04-30] MEDS ORDERED: Regadenoson 0.4 MG/5 ML SYRINGE ONE (07:25)
[2022-04-30] MEDS ORDERED: Lactated Ringers 1000 ml BAG 1,000 ML IV SCH (08:00)
[2022-04-30 08:26] LABS: Urine Creatinine Concentration 167.57 mg/dL
[2022-04-30 08:32] LABS: Urine Appearance Clear; Urine Color Yellow
[2022-04-30 08:33] LABS: Urine Bilirubin Negative (Negative); Urine Blood Negative (Negative); Urine Glucose Negative (Negative); Urine Ketones Negative (Negative); Urine Nitrite Negative (Negative); Urine Protein Negative (Negative); Urine Urobilinogen 0.2 (Negative) (Negative); Urine pH 5.5 (5.0-9.0)
[2022-04-30 09:00] LABS: Urine Specific Gravity 1.025 (1.002-1.030)
[2022-04-30] MEDS: FLUTICAS/UMECLI/VILANT 100-62.5-25 MDI (NF) INH SCH (10:24)
[2022-04-30] MEDS: Aspirin EC 81 mg TAB.EC (enteric coated) PO SCH (10:24)
[2022-04-30 10:52] LABS: Albumin/Globulin Ratio 1.3 (1-3); Direct Bilirubin 0.2 mg/dL (0.03-0.18); Globulin 2.4 g/dL (2-4); Indirect Bilirubin 0.7 mg/dL (0.3-1.0); Total Bilirubin 0.9 mg/dL (0.2-1.0); Total Protein 5.4 g/dL (6.4-8.9)
[2022-04-30] MEDS ORDERED: Lidocaine 2% PF 5 ML VIAL ONE (13:47)
[2022-04-30] MEDS ORDERED: Midazolam 2 mg/2 ml VIAL 1 mg/ml 2 ml VIAL (2 mg) ONE (13:48)
[2022-04-30] MEDS: Furosemide 20 mg/2 ml IV VIAL IV SLOW PU SCH (17:15)
[2022-04-30] MEDS: Amiodarone 400 mg TAB PO SCH (21:01)
[2022-04-30] MEDS ORDERED: Lactated Ringers 500 ml BAG 500 ML IV SCH (22:00)
[2022-05-01] MEDS ORDERED: Buffered Lidocaine 1% SYRIN 1 ml INTRADERM ONE (06:00)
[2022-05-01] MEDS ORDERED: Lactated Ringers 1000 ml BAG 1,000 ML IV SCH (06:00)
[2022-05-01] MEDS: FLUTICAS/UMECLI/VILANT 100-62.5-25 MDI (NF) INH SCH (07:43)
[2022-05-01 08:53] LABS: Calcium 8.7 mg/dL (8.6-10.3); Potassium 4.4 mmol/L (3.5-5.0); eGFR CKD-EPI 80.6 (>60)
[2022-05-01] MEDS: Amiodarone 400 mg TAB PO SCH ×2 (10:13→20:43)
[2022-05-01] MEDS: Aspirin EC 81 mg TAB.EC (enteric coated) PO SCH (10:13)
[2022-05-01] MEDS: Furosemide 20 mg/2 ml IV VIAL IV SLOW PU SCH (10:19)
[2022-05-01] MEDS: Saline NASAL SPRAY 0.65% BTL BOTH NARES PRN ×2 (14:05→18:30)
[2022-05-01 16:43] LABS: High Sensitivity Troponin 1 Hr 19 pg/mL (<20)
[2022-05-01] MEDS: CMCS:Ranolazine 500 mg TAB ER (NF) PO SCH (20:42)
[2022-05-02] MEDS: FLUTICAS/UMECLI/VILANT 100-62.5-25 MDI (NF) INH SCH (07:36)
[2022-05-02] MEDS: Aspirin EC 81 mg TAB.EC (enteric coated) PO SCH (09:28)
[2022-05-02] MEDS: Amiodarone 400 mg TAB PO SCH (09:28)
[2022-05-02] MEDS: Saline NASAL SPRAY 0.65% BTL BOTH NARES PRN (09:30)
[2022-05-02 12:05] VITALS: BP 88/54
== END 2022-05-02 12:21 | disposition home or self-care (01) | DRG 309 ==
LOC: ED 14:22 → EDHOLD 19:16 → SUATTDRO 19:16 → EDHOLD 04-30 09:06 → MEDTELE 04-30 09:08
PROVIDERS: ADMIT Hospitalist; ATTEND Internal Medicine

== ENCOUNTER 2022-07-29 12:39 | Inpatient (IN) ==
[2022-07-29 13:34] LABS: ABS Basophils 0.1 10^3/ul (0-0.2); ABS Eosinophils 0.1 10^3/ul (0-0.6); ABS Lymphocytes 1.1 10^3/ul (1.0-4.8); ABS Monocytes 0.9 10^3/ul (0-0.8); ABS Neutrophils 6.8 10^3/ul (1.5-7.7); Eosinophil % 0.9 %; Hematocrit 42 % (42-52); Lymphocyte % 11.9 %; Mean Corpuscular HGB Conc 33 g/dL (31-36); Mean Corpuscular Hemoglobin 30 pg (27-31); Mean Corpuscular Volume 91 fL (80-94); Mean Platelet Volume 7.2 fL (7.4-10.4); Platelet Count 306 10^3/uL (150-450); Red Blood Count 4.67 10^6 /uL (4.18-5.48); Red Cell Distribution Width 15 % (10-15); White Blood Count 8.9 10^3/uL (3.5-10.8)
[2022-07-29 13:40] LABS: INR 1.6 (0.89-1.11)
[2022-07-29] MEDS ORDERED: Lactated Ringers 1000 ml BAG 1,000 ML IV ONE ×3 (13:47→18:58)
[2022-07-29 14:32] LABS: Albumin 3.6 g/dL (3.2-5.2); Albumin/Globulin Ratio 1.2 (1-3); Calcium 8.8 mg/dL (8.6-10.3); Globulin 3.1 g/dL (2-4); Total Bilirubin 1.4 mg/dL (0.2-1.0); Total Protein 6.7 g/dL (6.4-8.9)
[2022-07-29 15:03] LABS: High Sensitivity Troponin 1 Hr 15 pg/mL (<20)
[2022-07-29] MEDS ORDERED: Naloxone 0.4 mg VIAL 0.4 mg/ml 1 ml VIAL ONE (15:28)
[2022-07-29] MEDS ORDERED: fentaNYL 100 mcg/2 ml 50 MCG/ML VIAL ONE (15:28)
[2022-07-29] MEDS ORDERED: Flumazenil 0.5 mg/5 ml 0.1 MG/ML 5 ml VIAL ONE (15:28)
[2022-07-29] MEDS ORDERED: Midazolam 5 mg/5 ml VIAL 1 mg/ml 5 ml VIAL (5 mg) ONE (15:28)
[2022-07-30] MEDS ORDERED: Ondansetron 4 mg VIAL 2 MG/ML 2 ml VIAL IV PRN (00:31)
[2022-07-30] MEDS ORDERED: Albuterol HFA INHALER 8 gm MDI INH PRN (00:36)
[2022-07-30] MEDS: Aspirin EC 81 mg TAB.EC (enteric coated) PO SCH (08:38)
[2022-07-30] MEDS: CMCS: FLUTICAS/UMECLI/VILANT 100-62.5-25 MDI (NF) INH SCH (12:08)
[2022-07-30 16:08] LABS: TSH Ultra Thyroid Stim Horm 2.21 mcIU/mL (0.34-5.60)
[2022-07-30] MEDS: CMCS: Ranolazine 500 mg TAB ER (NF) PO SCH (22:06)
[2022-07-31 06:38] LABS: ABS Basophils 0.1 10^3/ul (0-0.2); ABS Eosinophils 0.3 10^3/ul (0-0.6); ABS Lymphocytes 0.9 10^3/ul (1.0-4.8); ABS Monocytes 0.7 10^3/ul (0-0.8); ABS Neutrophils 5.5 10^3/ul (1.5-7.7); Eosinophil % 4.2 %; Hematocrit 38 % (42-52); Hemoglobin 12.7 g/dL (14.0-18.0); Lymphocyte % 11.7 %; Mean Corpuscular HGB Conc 33 g/dL (31-36); Mean Corpuscular Hemoglobin 30 pg (27-31); Mean Corpuscular Volume 91 fL (80-94); Mean Platelet Volume 7.5 fL (7.4-10.4); Nucleated Red Blood Cells % 0.1; Platelet Count 273 10^3/uL (150-450); Red Blood Count 4.22 10^6 /uL (4.18-5.48); Red Cell Distribution Width 15 % (10-15); White Blood Count 7.5 10^3/uL (3.5-10.8)
[2022-07-31 06:57] LABS: Calcium 8.6 mg/dL (8.6-10.3); Potassium 4.4 mmol/L (3.5-5.0); eGFR CKD-EPI 78.7 (>60)
[2022-07-31 07:09] LABS: TSH Ultra Thyroid Stim Horm 2.94 mcIU/mL (0.34-5.60)
[2022-07-31] MEDS: CMCS: FLUTICAS/UMECLI/VILANT 100-62.5-25 MDI (NF) INH SCH (07:37)
[2022-07-31] MEDS: Aspirin EC 81 mg TAB.EC (enteric coated) PO SCH (08:16)
[2022-07-31] MEDS: CMCS: Ranolazine 500 mg TAB ER (NF) PO SCH (20:18)
[2022-08-01 07:25] LABS: ABS Basophils 0.1 10^3/ul (0-0.2); ABS Eosinophils 0.3 10^3/ul (0-0.6); ABS Lymphocytes 0.9 10^3/ul (1.0-4.8); ABS Monocytes 0.7 10^3/ul (0-0.8); Eosinophil % 4.2 %; Hematocrit 41 % (42-52); Hemoglobin 13.7 g/dL (14.0-18.0); Lymphocyte % 13.4 %; Mean Corpuscular HGB Conc 34 g/dL (31-36); Mean Corpuscular Hemoglobin 31 pg (27-31); Mean Corpuscular Volume 92 fL (80-94); Mean Platelet Volume 7.8 fL (7.4-10.4); Platelet Count 270 10^3/uL (150-450); Red Blood Count 4.43 10^6 /uL (4.18-5.48); Red Cell Distribution Width 15 % (10-15)
[2022-08-01 07:43] LABS: Calcium 8.8 mg/dL (8.6-10.3); Magnesium 2.2 mg/dL (1.9-2.7); Potassium 4.3 mmol/L (3.5-5.0)
[2022-08-01] MEDS: CMCS: FLUTICAS/UMECLI/VILANT 100-62.5-25 MDI (NF) INH SCH (07:45)
[2022-08-01] MEDS ORDERED: Midazolam 2 mg/2 ml VIAL 1 mg/ml 2 ml VIAL (2 mg) ONE (12:22)
[2022-08-01] MEDS ORDERED: Lidocaine 2% PF 5 ML VIAL ONE (12:22)
[2022-08-01] MEDS: Aspirin EC 81 mg TAB.EC (enteric coated) PO SCH (15:08)
[2022-08-01 15:56] VITALS: BP 108/66
== END 2022-08-01 17:00 | disposition home or self-care (01) | DRG 291 ==
LOC: ED 12:39 → EDHOLD 12:39 → SUATTDRO 07-30 00:31 → EDHOLD 07-30 08:03 → MEDTELE 07-30 20:25 → SUATTDRO 07-31 17:34
PROVIDERS: ADMIT Internal Medicine; ATTEND Hospitalist
PROC: CARDVER (ICD-10-PCS; 2022-07-29 15:50)

== ENCOUNTER 2022-10-29 17:33 | Inpatient (IN) ==
[2022-10-29] MEDS ORDERED: NS 0.9% 500 ml BAG 500 ML IV ONE ×3 (18:13→21:16)
[2022-10-29 18:29] LABS: Hematocrit 43 % (42-52); Mean Corpuscular HGB Conc 33 g/dL (31-36); Mean Corpuscular Hemoglobin 29 pg (27-31); Mean Corpuscular Volume 89 fL (80-94); Mean Platelet Volume 7.8 fL (7.4-10.4); Platelet Count 304 10^3/uL (150-450); Red Blood Count 4.78 10^6 /uL (4.18-5.48); Red Cell Distribution Width 16 % (10-15); White Blood Count 11.6 10^3/uL (3.5-10.8)
[2022-10-29 18:38] LABS: INR 1.86 (0.88-1.18)
[2022-10-29 18:55] LABS: Anisocytosis 1+; Platelet Morphology Large
[2022-10-29 18:56] LABS: ABS Basophils 0.1 10^3/ul (0-0.2); ABS Eosinophils 0.1 10^3/ul (0-0.6); ABS Lymphocytes 1.4 10^3/ul (1.0-4.8); ABS Monocytes 1.1 10^3/ul (0-0.8); ABS Neutrophils 8.9 10^3/ul (1.5-7.7); Eosinophil % 0.9 %; Lymphocyte % 11.9 %
[2022-10-29 19:05] LABS: Albumin 3.6 g/dL (3.2-5.2); Calcium 8.9 mg/dL (8.6-10.3); Potassium 3.3 mmol/L (3.5-5.0); Total Bilirubin 1.6 mg/dL (0.2-1.0)
[2022-10-29 19:11] LABS: Albumin/Globulin Ratio 1.2 (1-3); C Reactive Protein 6.93 mg/L (<8.01); Creatinine, Serum 1.5 mg/dL (0.67-1.17); Globulin 3.1 g/dL (2-4); Total Protein 6.7 g/dL (6.4-8.9); eGFR CKD-EPI 50.7 (>60)
[2022-10-29 19:26] LABS: TSH Ultra Thyroid Stim Horm 1.66 mcIU/mL (0.34-5.60)
[2022-10-29 19:59] LABS: High Sensitivity Troponin 1 Hr 55 pg/mL (<20)
[2022-10-29] MEDS ORDERED: Albuterol HFA INHALER 8 gm MDI INH PRN (22:39)
[2022-10-29] MEDS ORDERED: Lactated Ringers 1000 ml BAG 1,000 ML IV SCH (23:00)
[2022-10-30] MEDS ORDERED: Metoclopramide 5 MG/ML VIAL (10 mg) IV ONE (00:45)
[2022-10-30] MEDS ORDERED: Potassium Chloride LIQUID 20 MEQ/15 ML LIQUID PO ONE ×2 (00:51→02:14)
[2022-10-30] MEDS: Acetaminophen IV 1 GM/100ML 1,000 MG/100 ML BAG IV PRN ×2 (00:58→17:54)
[2022-10-30] MEDS ORDERED: KCL 20 MEQ/100 ML IVPREMIX 20 MEQ/100 ML BAG IV SCH (01:00)
[2022-10-30] MEDS ORDERED: KCL 20 MEQ/100 ML IVPREMIX 20 MEQ/100 ML BAG IV ONE (02:15)
[2022-10-30] MEDS ORDERED: Potassium Chlor 20 meq TAB.ER PO ONE ×2 (02:26→06:42)
[2022-10-30] MEDS ORDERED: PHENYLEPHRINE DRIP IVPREMIX 50 MG/250 ML BAG IV SCH (03:00)
[2022-10-30] MEDS: Phenylephrine DRIP 0.2 MG/ML in NS 0.9% 250 ML (PHA mix) IV SCH ×2 (03:08→23:11)
[2022-10-30] MEDS ORDERED: Lidocaine 1% VIAL 10 MG/ML VIAL 30 ML ONE (04:14)
[2022-10-30 04:54] LABS: Urine Appearance Clear; Urine Bilirubin Negative (Negative); Urine Blood Negative (Negative); Urine Color Yellow; Urine Glucose Negative (Negative); Urine Ketones Negative (Negative); Urine Nitrite Negative (Negative); Urine Protein Negative (Negative); Urine Urobilinogen Negative (Negative)
[2022-10-30 05:25] LABS: ABS Basophils 0.1 10^3/ul (0-0.2); ABS Eosinophils 0.3 10^3/ul (0-0.6); ABS Lymphocytes 1.1 10^3/ul (1.0-4.8); ABS Neutrophils 4.8 10^3/ul (1.5-7.7); Eosinophil % 4.3 %; Hematocrit 39 % (42-52); Hemoglobin 12.8 g/dL (14.0-18.0); Lymphocyte % 15.5 %; Mean Corpuscular HGB Conc 33 g/dL (31-36); Mean Corpuscular Hemoglobin 30 pg (27-31); Mean Corpuscular Volume 89 fL (80-94); Mean Platelet Volume 7.3 fL (7.4-10.4); Platelet Count 305 10^3/uL (150-450); Red Blood Count 4.32 10^6 /uL (4.18-5.48); Red Cell Distribution Width 16 % (10-15); White Blood Count 7.3 10^3/uL (3.5-10.8)
[2022-10-30 06:14] LABS: Albumin/Globulin Ratio 1.2 (1-3); Calcium 8.2 mg/dL (8.6-10.3); Creatinine, Serum 1.6 mg/dL (0.67-1.17); Globulin 2.5 g/dL (2-4); Magnesium 1.9 mg/dL (1.9-2.7); Potassium 3.6 mmol/L (3.5-5.0); Total Bilirubin 1.1 mg/dL (0.2-1.0); Total Protein 5.5 g/dL (6.4-8.9); eGFR CKD-EPI 46.9 (>60)
[2022-10-30] MEDS ORDERED: Magnesium Sulfate 2 gm BAG 2 GM/50 ML BAG IVPB ONE (06:42)
[2022-10-30] MEDS: FLUTICAS/UMECLI/VILANT 100-62.5-25 MDI (NF) INH SCH (07:20)
[2022-10-30] MEDS: Amiodarone 400 mg TAB PO SCH (07:59)
[2022-10-30] MEDS: Aspirin EC 81 mg TAB.EC (enteric coated) PO SCH (07:59)
[2022-10-30] MEDS ORDERED: Nitroglycerin 0.3 mg TAB SL ONE (17:39)
[2022-10-30 17:41] LABS: Ferritin 233.7 ng/mL (24-336)
[2022-10-30] MEDS: CMC:Ranolazine 500 mg TAB ER (NF) PO SCH (20:09)
[2022-10-31 05:25] LABS: ABS Basophils 0.1 10^3/ul (0-0.2); ABS Eosinophils 0.5 10^3/ul (0-0.6); ABS Lymphocytes 1.4 10^3/ul (1.0-4.8); ABS Monocytes 0.9 10^3/ul (0-0.8); ABS Neutrophils 6.1 10^3/ul (1.5-7.7); Hematocrit 39 % (42-52); Hemoglobin 12.8 g/dL (14.0-18.0); Lymphocyte % 15.4 %; Mean Corpuscular HGB Conc 33 g/dL (31-36); Mean Corpuscular Hemoglobin 29 pg (27-31); Mean Corpuscular Volume 89 fL (80-94); Mean Platelet Volume 7.5 fL (7.4-10.4); Platelet Count 300 10^3/uL (150-450); Red Blood Count 4.36 10^6 /uL (4.18-5.48); Red Cell Distribution Width 16 % (10-15); White Blood Count 9.1 10^3/uL (3.5-10.8)
[2022-10-31 06:10] LABS: Albumin/Globulin Ratio 1.2 (1-3); Calcium 8.3 mg/dL (8.6-10.3); Creatinine, Serum 1.14 mg/dL (0.67-1.17); Globulin 2.5 g/dL (2-4); Magnesium 2.2 mg/dL (1.9-2.7); Potassium 4.4 mmol/L (3.5-5.0); Total Bilirubin 0.9 mg/dL (0.2-1.0); Total Protein 5.5 g/dL (6.4-8.9); eGFR CKD-EPI 70.5 (>60)
[2022-10-31] MEDS: FLUTICAS/UMECLI/VILANT 100-62.5-25 MDI (NF) INH SCH ×2 (06:46→11:20)
[2022-10-31] MEDS: Aspirin EC 81 mg TAB.EC (enteric coated) PO SCH (08:36)
[2022-10-31] MEDS: Amiodarone 400 mg TAB PO SCH (08:36)
[2022-10-31] MEDS: CMC:Ranolazine 500 mg TAB ER (NF) PO SCH ×2 (08:48→19:57)
[2022-10-31] MEDS: Phenylephrine DRIP 0.2 MG/ML in NS 0.9% 250 ML (PHA mix) IV SCH (16:38)
[2022-11-01 04:47] LABS: ABS Basophils 0.1 10^3/ul (0-0.2); ABS Eosinophils 0.6 10^3/ul (0-0.6); ABS Lymphocytes 1.2 10^3/ul (1.0-4.8); ABS Monocytes 0.9 10^3/ul (0-0.8); ABS Neutrophils 5.4 10^3/ul (1.5-7.7); Eosinophil % 7.5 %; Hematocrit 38 % (42-52); Hemoglobin 12.7 g/dL (14.0-18.0); Lymphocyte % 14.3 %; Mean Corpuscular HGB Conc 34 g/dL (31-36); Mean Corpuscular Hemoglobin 30 pg (27-31); Mean Corpuscular Volume 89 fL (80-94); Mean Platelet Volume 7.5 fL (7.4-10.4); Platelet Count 295 10^3/uL (150-450); Red Blood Count 4.21 10^6 /uL (4.18-5.48); Red Cell Distribution Width 16 % (10-15); White Blood Count 8.2 10^3/uL (3.5-10.8)
[2022-11-01 05:25] LABS: Calcium 8.4 mg/dL (8.6-10.3); Creatinine, Serum 1.05 mg/dL (0.67-1.17); Potassium 4.6 mmol/L (3.5-5.0); eGFR CKD-EPI 77.8 (>60)
[2022-11-01] MEDS: FLUTICAS/UMECLI/VILANT 100-62.5-25 MDI (NF) INH SCH (07:17)
[2022-11-01] MEDS: Aspirin EC 81 mg TAB.EC (enteric coated) PO SCH (08:12)
[2022-11-01] MEDS: CMC:Ranolazine 500 mg TAB ER (NF) PO SCH (08:12)
[2022-11-01] MEDS: Amiodarone 400 mg TAB PO SCH (08:12)
[2022-11-01] MEDS: Phenylephrine DRIP 0.2 MG/ML in NS 0.9% 250 ML (PHA mix) IV SCH (09:42)
[2022-11-01] MEDS ORDERED: Norepinephrine IV 8 MG in NS 0.9% 500 ml BAG 492 ML IV SCH (12:00)
[2022-11-01 13:10] VITALS: BP 108/82
== END 2022-11-01 13:07 | disposition short-term general hospital (02) | DRG 315 ==
LOC: ED 17:33 → EDHOLD 21:41 → ICU 23:31
PROVIDERS: ADMIT Internal Medicine Critical Care Medicine; ATTEND Internal Medicine Critical Care Medicine

== ENCOUNTER 2023-12-14 17:43 | Inpatient (IN) ==
[2023-12-14 18:22] LABS: ABS Basophils 0.2 10^3/uL (0.0-0.1); ABS Eosinophils 0.1 10^3/uL (0.0-0.5); ABS Lymphocytes 1.5 10^3/uL (1.0-4.8); ABS Neutrophils 9.4 10^3/uL (1.5-7.6); ABS Nucleated RBC 0.01 10^3/ul; Eosinophil % 0.5 %; Hematocrit 44.3 % (38-53); Hemoglobin 14.7 g/dL (13.2-16.3); Lymphocyte % 12.4 %; Mean Corpuscular Hemoglobin 30.3 pg (27-33); Mean Corpuscular Hgb Conc 33.2 g/dL (31-36); Mean Corpuscular Volume 91.2 fL (80-97); Mean Platelet Volume 7.2 fL (7.5-11.2); Platelet Count 309 10^3/uL (150-450); Red Blood Count 4.86 10^6/uL (4.06-5.63); Red Cell Distribution Width 15.9 % (12-17); White Blood Count 12.2 10^3/uL (3.6-10.2)
[2023-12-14 18:30] LABS: INR 1.63 (0.83-1.13)
[2023-12-14 19:12] LABS: Albumin 4.1 g/dL (3.2-5.2); Albumin/Globulin Ratio 1.2 (1-3); Calcium 9.4 mg/dL (8.6-10.3); Creatinine, Serum 1.79 mg/dL (0.67-1.17); Globulin 3.4 g/dL (2-4); Potassium 3.8 mmol/L (3.5-5.0); Total Bilirubin 1.5 mg/dL (0.2-1.0); Total Protein 7.5 g/dL (6.4-8.9); eGFR CKD-EPI 40.8 (>60)
[2023-12-14 19:56] LABS: High Sensitivity Troponin 1 Hr 105 pg/mL (<20)
[2023-12-14] MEDS ORDERED: Heparin 5000 UNITS/ML 1 mL VIAL IV SCH (20:00)
[2023-12-14] MEDS: NS 0.9% 500 ml BAG 500 ML IV ONE (20:08)
[2023-12-14 20:47] LABS: ABS Basophils 0.1 10^3/uL (0.0-0.1); ABS Eosinophils 0.1 10^3/uL (0.0-0.5); ABS Lymphocytes 1.3 10^3/uL (1.0-4.8); ABS Neutrophils 7.4 10^3/uL (1.5-7.6); Eosinophil % 1.1 %; Hematocrit 39.7 % (38-53); Hemoglobin 13.2 g/dL (13.2-16.3); Lymphocyte % 13.3 %; Mean Corpuscular Hemoglobin 30.7 pg (27-33); Mean Corpuscular Hgb Conc 33.3 g/dL (31-36); Mean Corpuscular Volume 92.1 fL (80-97); Mean Platelet Volume 7.2 fL (7.5-11.2); Platelet Count 273 10^3/uL (150-450); Red Blood Count 4.31 10^6/uL (4.06-5.63); Red Cell Distribution Width 15.8 % (12-17); White Blood Count 9.9 10^3/uL (3.6-10.2)
[2023-12-14 21:12] LABS: Creatinine, Serum 1.75 mg/dL (0.67-1.17); eGFR CKD-EPI 41.9 (>60)
[2023-12-14] MEDS: Heparin DRIP 25,000 UNITS BAG 25,000 UNITS/250 ML BAG IV SCH (21:33)
[2023-12-14] MEDS ORDERED: Albuterol HFA INHALER 8 gm MDI INH PRN (23:20)
[2023-12-15 05:09] LABS: ABS Basophils 0.1 10^3/uL (0.0-0.1); ABS Eosinophils 0.3 10^3/uL (0.0-0.5); ABS Lymphocytes 1.1 10^3/uL (1.0-4.8); ABS Monocytes 0.8 10^3/uL (0.0-1.1); ABS Neutrophils 5.4 10^3/uL (1.5-7.6); Hematocrit 37.4 % (38-53); Hemoglobin 12.9 g/dL (13.2-16.3); Lymphocyte % 14.6 %; Mean Corpuscular Hemoglobin 31.2 pg (27-33); Mean Corpuscular Hgb Conc 34.5 g/dL (31-36); Mean Corpuscular Volume 90.5 fL (80-97); Mean Platelet Volume 7.1 fL (7.5-11.2); Platelet Count 269 10^3/uL (150-450); Red Blood Count 4.13 10^6/uL (4.06-5.63); Red Cell Distribution Width 15.5 % (12-17); White Blood Count 7.7 10^3/uL (3.6-10.2)
[2023-12-15 06:15] LABS: Calcium 8.5 mg/dL (8.6-10.3); Creatinine, Serum 1.68 mg/dL (0.67-1.17); Magnesium 2.4 mg/dL (1.9-2.7); Potassium 3.2 mmol/L (3.5-5.0)
[2023-12-15] MEDS: KCL 20 MEQ/100 ML IVPREMIX 20 MEQ/100 ML BAG IV SCH (06:45)
[2023-12-15] MEDS: Potassium Chlor 20 meq TAB.ER PO ONE (06:53)
[2023-12-15] MEDS: NS 0.9% 250 ml 250 ML IV ONE (06:54)
[2023-12-15] MEDS ORDERED: Sulfur Hexaflouride MICROSPHR 25 MG VIAL ONE (09:33)
[2023-12-15] MEDS: Aspirin EC 81 mg TAB.EC (enteric coated) PO SCH (09:42)
[2023-12-15] MEDS: Senna TAB 8.6 mg TAB PO SCH (09:42)
[2023-12-15] MEDS: Bumetanide IV 0.25 MG/ML 4 ml VIAL (1 mg) IV SLOW PU SCH (09:43)
[2023-12-15] MEDS: CMCS:FLUTICAS/UMECLI/VILANT 100-62.5-25 MDI (NF) INH SCH (10:21)
[2023-12-15 11:11] LABS: High Sensitivity Troponin 1 Hr 42 pg/mL (<20)
[2023-12-15] MEDS: CMCS:Ranolazine 500 mg TAB ER (NF) PO SCH (12:26)
[2023-12-15 13:11] LABS: Calcium 8.3 mg/dL (8.6-10.3); Creatinine, Serum 1.41 mg/dL (0.67-1.17); Magnesium 2.3 mg/dL (1.9-2.7); Potassium 3.9 mmol/L (3.5-5.0); eGFR CKD-EPI 54.3 (>60)
[2023-12-15] MEDS: Ranolazine 500 mg TAB ER (NF) PO SCH (17:11)
[2023-12-16 04:29] LABS: Calcium 8.4 mg/dL (8.6-10.3); Creatinine, Serum 1.29 mg/dL (0.67-1.17); Magnesium 2.4 mg/dL (1.9-2.7); Potassium 3.6 mmol/L (3.5-5.0); eGFR CKD-EPI 60.4 (>60)
[2023-12-16] MEDS: Potassium Chlor 20 meq TAB.ER PO SCH (09:31)
[2023-12-16] MEDS: Digoxin IV 0.5 MG/2 ML AMP (0.25 MG/ML) IV SLOW PU ONE (09:32)
[2023-12-17 06:02] LABS: ABS Eosinophils 0.5 10^3/uL (0.0-0.5); ABS Lymphocytes 1.4 10^3/uL (1.0-4.8); ABS Monocytes 0.9 10^3/uL (0.0-1.1); ABS Neutrophils 5.3 10^3/uL (1.5-7.6); Eosinophil % 5.9 %; Hematocrit 39.2 % (38-53); Hemoglobin 13.3 g/dL (13.2-16.3); Lymphocyte % 17.3 %; Mean Corpuscular Hemoglobin 31.4 pg (27-33); Mean Corpuscular Hgb Conc 33.9 g/dL (31-36); Mean Corpuscular Volume 92.5 fL (80-97); Mean Platelet Volume 7.3 fL (7.5-11.2); Platelet Count 283 10^3/uL (150-450); Red Blood Count 4.24 10^6/uL (4.06-5.63); Red Cell Distribution Width 15.7 % (12-17)
[2023-12-17 06:18] LABS: Calcium 8.7 mg/dL (8.6-10.3); Creatinine, Serum 1.39 mg/dL (0.67-1.17); Magnesium 2.2 mg/dL (1.9-2.7); Potassium 3.8 mmol/L (3.5-5.0); eGFR CKD-EPI 55.2 (>60)
[2023-12-17 13:10] VITALS: BP 102/70
== END 2023-12-17 14:27 | disposition home or self-care (01) | DRG 293 ==
LOC: ED 17:43 → EDHOLD 17:43 → ICU 23:30
PROVIDERS: ADMIT Hospitalist; ATTEND Hospitalist

== ENCOUNTER 2024-01-13 14:23 | Observation (INO) ==
[2024-01-13 15:10] LABS: Mean Corpuscular Hgb Conc 34.1 g/dL (31-36); Mean Corpuscular Volume 91.1 fL (80-97); Mean Platelet Volume 7.3 fL (7.5-11.2); Platelet Count 326 10^3/uL (150-450); Red Cell Distribution Width 14.6 % (12-17); White Blood Count 10.2 10^3/uL (3.6-10.2)
[2024-01-13 15:17] LABS: INR 1.7 (0.83-1.13)
[2024-01-13] MEDS: Lactated Ringers 1000 ml BAG 1,000 ML IV ONE (15:23)
[2024-01-13 15:40] LABS: ABS Lymphocytes 1.5 10^3/uL (1.0-4.8); ABS Neutrophils 7.6 10^3/uL (1.5-7.6); ABS Nucleated RBC 0.01 10^3/ul; Eosinophil % 0.4 %; Lymphocyte % 14.8 %; Nucleated Red Blood Cells % 0.1 %/100WBC (0.0-0.8); RBC Morphology Normal (Normal)
[2024-01-13 16:03] LABS: Albumin 3.9 g/dL (3.2-5.2); Albumin/Globulin Ratio 1.1 (1-3); C Reactive Protein 6.18 mg/L (<8.01); Calcium 9.3 mg/dL (8.6-10.3); Creatinine, Serum 1.84 mg/dL (0.67-1.17); Globulin 3.4 g/dL (2-4); Potassium 3.6 mmol/L (3.5-5.0); Total Protein 7.3 g/dL (6.4-8.9); eGFR CKD-EPI 39.2 (>60)
[2024-01-13 16:42] LABS: High Sensitivity Troponin 1 Hr 194 pg/mL (<20)
[2024-01-13 17:46] LABS: Erythrocyte Sed Rate 30 mm/Hr (0-19)
[2024-01-13] MEDS: Iodixanol (CONTRAST) 320 MG/ML 100 ML SDV IV ONE (17:53)
[2024-01-13 22:16] LABS: Magnesium 2.6 mg/dL (1.9-2.7)
[2024-01-13] MEDS: Lactated Ringers 1000 ml BAG 500 ML IV ONE ×2 (22:28→23:15)
[2024-01-13 22:32] LABS: TSH Ultra Thyroid Stim Horm 2.23 mcIU/mL (0.34-5.60)
[2024-01-13] MEDS ORDERED: Albuterol HFA INHALER 8 gm MDI INH PRN (23:25)
[2024-01-13 23:39] LABS: Urine Appearance Clear; Urine Bilirubin Negative (Negative); Urine Blood Negative (Negative); Urine Color Light-Yellow; Urine Glucose 3+ (>=300 mg/dL) (Negative); Urine Ketones Negative (Negative); Urine Nitrite Negative (Negative); Urine Protein Negative (Negative); Urine Specific Gravity 1.026 (1.002-1.030); Urine Urobilinogen Negative (Negative)
[2024-01-14] MEDS: Lactated Ringers 1000 ml BAG 1,000 ML IV SCH (01:25)
[2024-01-14] MEDS: Lactated Ringers 1000 ml BAG 500 ML IV ONE (02:07)
[2024-01-14 08:19] LABS: ABS Basophils 0.1 10^3/uL (0.0-0.1); ABS Eosinophils 0.4 10^3/uL (0.0-0.5); ABS Monocytes 0.6 10^3/uL (0.0-1.1); ABS Neutrophils 5.2 10^3/uL (1.5-7.6); Eosinophil % 5.2 %; Hematocrit 37.1 % (38-53); Hemoglobin 12.9 g/dL (13.2-16.3); Lymphocyte % 13.3 %; Mean Corpuscular Hemoglobin 31.4 pg (27-33); Mean Corpuscular Hgb Conc 34.8 g/dL (31-36); Mean Corpuscular Volume 90.4 fL (80-97); Mean Platelet Volume 7.2 fL (7.5-11.2); Platelet Count 278 10^3/uL (150-450); White Blood Count 7.3 10^3/uL (3.6-10.2)
[2024-01-14 09:01] LABS: Albumin 3.2 g/dL (3.2-5.2); Albumin/Globulin Ratio 1.2 (1-3); Calcium 8.3 mg/dL (8.6-10.3); Creatinine, Serum 1.24 mg/dL (0.67-1.17); Globulin 2.6 g/dL (2-4); Magnesium 2.2 mg/dL (1.9-2.7); Potassium 3.2 mmol/L (3.5-5.0); Total Bilirubin 1.2 mg/dL (0.2-1.0); Total Protein 5.8 g/dL (6.4-8.9); eGFR CKD-EPI 62.9 (>60)
[2024-01-14] MEDS: FLUTICAS/UMECLI/VILANT 100-62.5-25 MDI (NF) INH SCH (10:03)
[2024-01-14] MEDS ORDERED: Sulfur Hexaflouride MICROSPHR 25 MG VIAL ONE (10:06)
[2024-01-14] MEDS: Aspirin EC 81 mg TAB.EC (enteric coated) PO SCH (11:27)
[2024-01-14] MEDS: Potassium Chlor 20 meq TAB.ER PO ONE (13:44)
[2024-01-14 16:05] VITALS: BP 90/68
[2024-01-14] MEDS ORDERED: Potassium Chlor 20 meq TAB.ER PO SCH (21:00)
== END 2024-01-14 17:33 | disposition home or self-care (01) ==
LOC: EDHOLD 14:23 → ED 14:23 → SUATTDRO 20:00 → MEDTELE 01-14 01:55
PROVIDERS: ADMIT Internal Medicine; ATTEND Student in an Organized Health Care Education/Training Program

== ENCOUNTER 2024-06-05 20:54 | Observation (INO) ==
[2024-06-05 21:49] LABS: ABS Basophils 0.2 10^3/uL (0.0-0.1); ABS Eosinophils 0.1 10^3/uL (0.0-0.5); ABS Lymphocytes 1.3 10^3/uL (1.0-4.8); ABS Monocytes 0.8 10^3/uL (0.0-1.1); ABS Neutrophils 5.5 10^3/uL (1.5-7.6); ABS Nucleated RBC 0.01 10^3/ul; Eosinophil % 1.3 %; Hematocrit 42.5 % (38-53); Hemoglobin 14.6 g/dL (13.2-16.3); Lymphocyte % 16.7 %; Mean Corpuscular Hgb Conc 34.4 g/dL (31-36); Mean Corpuscular Volume 90.2 fL (80-97); Mean Platelet Volume 7.2 fL (7.5-11.2); Nucleated Red Blood Cells % 0.1 %/100WBC (0.0-0.8); Platelet Count 289 10^3/uL (150-450); Red Blood Count 4.71 10^6/uL (4.06-5.63); Red Cell Distribution Width 15.3 % (12-17); White Blood Count 7.8 10^3/uL (3.6-10.2)
[2024-06-05 22:09] LABS: INR 1.56 (0.85-1.14)
[2024-06-05 22:29] LABS: Albumin 3.9 g/dL (3.2-5.2); Albumin/Globulin Ratio 1.2 (1-3); Calcium 9.2 mg/dL (8.6-10.3); Creatinine, Serum 1.49 mg/dL (0.67-1.17); Globulin 3.2 g/dL (2-4); Potassium 3.4 mmol/L (3.5-5.0); Total Bilirubin 1.9 mg/dL (0.2-1.0); Total Protein 7.1 g/dL (6.4-8.9); eGFR CKD-EPI 50.5 (>60)
[2024-06-05 22:50] LABS: High Sensitivity Troponin 1 Hr 79 pg/mL (<20)
[2024-06-06 02:21] LABS: High Sensitivity Troponin 3 Hr 65 pg/mL (<20)
[2024-06-06 02:38] LABS: Magnesium 2.1 mg/dL (1.9-2.7)
[2024-06-06] MEDS: Potassium Chlor 20 meq TAB.ER PO ONE (02:38)
[2024-06-06] MEDS ORDERED: Polyethylene Glycol 3350 17 GM PACKET PO PRN (03:46)
[2024-06-06] MEDS ORDERED: Senna TAB 8.6 mg TAB PO PRN (03:46)
[2024-06-06] MEDS ORDERED: Ondansetron 4 mg VIAL 2 MG/ML 2 ml VIAL IV PRN (03:46)
[2024-06-06] MEDS ORDERED: Sulfur Hexaflouride MICROSPHR 25 MG VIAL IV PRN (03:48)
[2024-06-06] MEDS ORDERED: Albuterol HFA INHALER 8 gm MDI INH PRN (04:06)
[2024-06-06 05:46] LABS: Hematocrit 39.4 % (38-53); Hemoglobin 13.6 g/dL (13.2-16.3); Mean Corpuscular Hemoglobin 31.3 pg (27-33); Mean Corpuscular Hgb Conc 34.6 g/dL (31-36); Mean Corpuscular Volume 90.6 fL (80-97); Mean Platelet Volume 7.2 fL (7.5-11.2); Platelet Count 248 10^3/uL (150-450); Red Blood Count 4.35 10^6/uL (4.06-5.63); Red Cell Distribution Width 15.3 % (12-17); White Blood Count 6.6 10^3/uL (3.6-10.2)
[2024-06-06 06:18] LABS: Albumin 3.3 g/dL (3.2-5.2); Albumin/Globulin Ratio 1.1 (1-3); Calcium 8.6 mg/dL (8.6-10.3); Creatinine, Serum 1.24 mg/dL (0.67-1.17); Globulin 2.9 g/dL (2-4); Potassium 3.5 mmol/L (3.5-5.0); Total Bilirubin 1.9 mg/dL (0.2-1.0); Total Protein 6.2 g/dL (6.4-8.9); eGFR CKD-EPI 62.9 (>60)
[2024-06-06 07:31] LABS: ABS Eosinophils 0.3 10^3/uL (0.0-0.5); ABS Lymphocytes 1.1 10^3/uL (1.0-4.8); ABS Monocytes 0.7 10^3/uL (0.0-1.1); ABS Neutrophils 4.4 10^3/uL (1.5-7.6); Eosinophil % 4.1 %; Lymphocyte % 16.9 %; Nucleated Red Blood Cells % 0.1 %/100WBC (0.0-0.8)
[2024-06-06 07:32] LABS: RBC Morphology Normal (Normal)
[2024-06-06] MEDS: Aspirin EC 81 mg TAB.EC (enteric coated) PO SCH (08:32)
[2024-06-06] MEDS: Potassium Chlor 20 meq TAB.ER PO SCH (08:32)
[2024-06-06] MEDS: CMCS:FLUTICAS/UMECLI/VILANT 100-62.5-25 MDI (NF) INH SCH (09:26)
[2024-06-06] MEDS: Ranolazine 500 mg TAB ER (NF) PO SCH (09:27)
[2024-06-06] MEDS: Iodixanol (CONTRAST) 320 MG/ML 100 ML SDV IV ONE (09:44)
[2024-06-06] MEDS: Aspirin EC 325 mg TAB.EC PO SCH (16:28)
[2024-06-07 06:26] LABS: HDL Cholesterol 46.4 mg/dL
[2024-06-07] MEDS ORDERED: Aminophylline 25 MG/ML VIAL ONE (10:36)
[2024-06-07] MEDS ORDERED: Regadenoson 0.4 MG/5 ML SYRINGE ONE (10:36)
[2024-06-07 14:05] VITALS: BP 92/76
== END 2024-06-07 16:18 | disposition home or self-care (01) ==
LOC: ED 20:54 → EDHOLD 20:54 → MEDTELE 06-06 21:35
PROVIDERS: ADMIT Hospitalist; ATTEND Hospitalist